=== PATIENT | male | born 1975 | race Two or more races ===

== ENCOUNTER 2018-09-17 21:34 | Emergency (ER) | payer MEDICARE, OTHER ==
[~2018-09-17] VITALS: Ht 180.3 cm; Wt 74.8 kg
--- NOTE | 2018-09-17 21:55 | NUR ---
DINAH. FROM [facility]. C/O "HAVING NECK PAIN" -GLF AOX4. AMBULATORY VSS -N.V
[2018-09-17] MEDS ORDERED: KETOROLAC TROMETHAMINE INJ 60 MG/2 ML VIAL IM ONE ×2 (22:30→22:34)
[2018-09-17] MEDS ORDERED: TRAMADOL HCL 50 MG TABLET ONE (22:43)
[2018-09-17] MEDS ORDERED: TRAMADOL HCL 50 MG TABLET PO ONE (23:00)
[2018-09-17 23:07] VITALS: BP 122/78
--- NOTE | 2018-09-17 23:07 | NUR ---
PT DENYING BEING HOMELESS.REFUSING TO SIGN PAPERWORK.
== END 2018-09-17 23:08 | disposition home or self-care (01) ==
LOC: ER 21:37
DX: M54.2 Cervicalgia (principal); M25.511 Pain in right shoulder; F17.210 Nicotine dependence, cigarettes, uncomplicated; I25.10 Atherosclerotic heart disease of native coronary artery without angina pectoris; F32.9 Major depressive disorder, single episode, unspecified; F41.9 Anxiety disorder, unspecified; I10 Essential (primary) hypertension; J44.9 Chronic obstructive pulmonary disease, unspecified; Z95.5 Presence of coronary angioplasty implant and graft; Z90.89 Acquired absence of other organs; Z98.890 Other specified postprocedural states
CPT/HCPCS: 99283; J1885

== ENCOUNTER 2020-10-05 20:18 | Inpatient (IN) | payer MEDICARE, OTHER ==
[~2020-10-05] VITALS: Ht 182.9 cm; Wt 89.8 kg
--- NOTE | 2020-10-05 20:39 | NUR ---
stave jointer Admitting/Opening Notes Patient was brought to to the unit via gurney accompanied by an 2 it instructor at approximately 2038. Patient was able to ambulate from a gurney to his bed. Patient was oriented to the staff and his room. Patient's alert and oriented x4. Patient's on room air with no respiratory distress noted. Patient's connected to a tele monitor showing a reading of sinus rhythm. Patient has an IV access on his left forearm gauge #22, which is intact, patent, and flushing well. Safety measures in place: Bed locked, side rails upx2, and call light within reach. Will continue to monitor the patient.
[2020-10-05] MEDS ORDERED: IPRATROPIUM BROMIDE 14 GM INHALER (or 12.9 GM) IH PRN (22:30)
[2020-10-05] MEDS ORDERED: MAG HYDROX/AL HYDROX/SIMETH 30 ML UDC PO PRN (22:30)
[2020-10-05] MEDS ORDERED: ACETAMINOPHEN 325 MG TABLET PO PRN (22:30)
[2020-10-05] MEDS ORDERED: HYDROCODONE/APAP 5/325MG TABLET PO PRN (22:30)
[2020-10-05] MEDS ORDERED: Z GUARD REMEDY 2 OZ OINT TP PRN (22:30)
[2020-10-05] MEDS ORDERED: ALBUTEROL FS 2.5 MG/0.5 ML VIAL.NEB NEB PRN (22:30)
[2020-10-05] MEDS ORDERED: MAGNESIUM HYDROXIDE 30 ML UDC PO PRN (22:30)
[2020-10-05] MEDS ORDERED: GABA300C PO (23:12)
[2020-10-05] MEDS ORDERED: VENL150C58 PO (23:12)
[2020-10-05] MEDS ORDERED: TRAZ-257 PO (23:12)
[2020-10-05] MEDS ORDERED: GABA600T12 PO (23:12)
[2020-10-05] MEDS ORDERED: VANCOMYCIN 1.5 GM in IV D5W 500ml IV ONE (23:30)
[2020-10-05] MEDS ORDERED: VANCOMYCIN 1 GM VIAL ONE ×2 (23:32→23:34)
[2020-10-05] MEDS ORDERED: PIPERACILLIN /TAZOBACTAM 3.375 G VIAL IV ONE (23:32)
[2020-10-05] MEDS: IV NS 0.9% 1,000 ML IV PRN (23:47)
[2020-10-06] VITALS (7 sets, daily range): BP systolic 141–161; BP diastolic 85–113
[2020-10-06] MEDS ORDERED: PIPERACILLIN /TAZOBACTAM 3.375 G in IV D5W 50 ML IV SCH
[2020-10-06] MEDS ORDERED: ZOSYN IVPB 3.375 G in IV D5W 50ml IV SCH
[2020-10-06] MEDS ORDERED: CALCIUM CARBONATE 500 MG TAB.CHEW PO PRN (02:00)
[2020-10-06] MEDS ORDERED: METRONIDAZOLE 500MG/ NS 100ML 100 ML IV ONE (02:04)
[2020-10-06] MEDS ORDERED: CEFTRIAXONE 1 G VIAL ONE (02:05)
[2020-10-06] MEDS: CEFTRIAXONE 1 G in IV D5W 50 ML IV SCH (02:29)
[2020-10-06] MEDS ORDERED: ENOXAPARIN SODIUM 40 MG/0.4 ML DISP.SYRIN SQ ONE (02:30)
[2020-10-06] MEDS: TRAMADOL HCL 50 MG TABLET PO PRN ×3 (02:33→20:32)
[2020-10-06] MEDS: METRONIDAZOLE 500MG/ NS 100ML 500 MG in PREMIX 1 EA IV SCH ×3 (02:59→17:06)
[2020-10-06 04:24] LABS: BILIRUBIN,URINE NEGATIVE (NEGATIVE); COLOR,URINE YELLOW (YELLOW); LEUKOCYTE ESTERASE ,URINE NEGATIVE (NEGATIVE); NITRITE, URINE NEGATIVE (NEGATIVE); PROTEIN,URINE NEGATIVE (NEGATIVE); UGLUCOSE NEGATIVE (NEGATIVE); UROBILINOGEN,URINE 0.2 EU/dL (0.2)
[2020-10-06 06:25] LABS: THYROID STIMULATING HORMONE 4.389 uIU/mL (0.358-3.74)
[2020-10-06 06:27] LABS: BASOPHILS # (AUTO) 0.1 K/uL (0.0-0.2); BASOPHILS % (AUTO) 0.6 % (0.0-2.0); HEMATOCRIT 38 % (39-51); HEMOGLOBIN 12.7 g/dL (13.5-17.5); LYMPHOCYTES # (AUTO) 1.6 K/uL (0.8-4.8); LYMPHOCYTES % (AUTO) 15.6 % (20.0-44.0); MEAN CORPUSCULAR HGB CONC 33 g/dl (31.0-36.0); MEAN CORPUSCULAR VOLUME 88 fL (80-96); MONOCYTES # (AUTO) 0.9 K/uL (0.1-1.30); MONOCYTES % (AUTO) 8.7 % (2.0-12.0); NEUTROPHILS # (AUTO) 7.5 K/uL (1.8-8.9); NEUTROPHILS % (AUTO) 73.1 % (43.0-81.0); PLATELET COUNT (AUTO) 313 K/uL (150-450); RED BLOOD CELL COUNT(AUTO) 4.37 MIL/uL (4.5-6.0); WHITE BLOOD COUNT (AUTO) 10.2 K/uL (4.3-11.0)
[2020-10-06 06:29] LABS: CALCIUM, SERUM 8.9 mg/dL (8.5-10.1); MAGNESIUM 2.1 mg/dL (1.8-2.4); PHOSPHORUS 4.2 mg/dL (2.5-4.9)
[2020-10-06] MEDS ORDERED: IPRATROPIUM HALF ST 0.25 MG/1.25 ML VIAL.NEB IH PRN (07:00)
--- NOTE | 2020-10-06 07:20 | NUR ---
SENIOR ADVISOR OPENING NOTE PT AWAKE IN BED, A/O X4, ABLE TO VERBALIZE NEEDS. NOTED IV ACCESS TO L-FA #22 INTACT AND PATENT WITH NS 0.9% INFUSING @75ML/HR AND TOLERATING WELL. ON EXTERNAL SAND TECHNICIAN CURRENTLY READING ST @105 BPM. PT DENIES ANY CARDIAC DISTRESS. SAFETY MEASURES MAINTAINED: BED IN LOWEST LOCKED POSITION, SR UP X2, CALL LIGHT AND BEDSIDE TABLE WITH EASY REACH. WILL CONTINUE TO MONITOR.
[2020-10-06] MEDS ORDERED: VANCOMYCIN 1.25 GM in IV D5W 250 ML IV SCH (08:00)
--- NOTE | 2020-10-06 08:00 | NUR ---
RN NOTE PT C/O MILD PAIN TO BACK 05/25. GIVEN ACETAMINOPHEN ORDERED. MADE COMFORTABE IN BED.
[2020-10-06] MEDS: PANTOPRAZOLE 40 MG TABLET.DR PO SCH (08:34)
--- NOTE | 2020-10-06 09:50 | NUR ---
SEEN AND EXAMINED BY DR. LOPEZ
[2020-10-06] MEDS: NYSTATIN (PYXIS) 500,000 UNIT/5 ML ORAL.SUSP PO SCH ×3 (10:29→17:06)
[2020-10-06] MEDS: GABAPENTIN 300 MG CAPSULE PO SCH (10:29)
[2020-10-06] MEDS: VENLAFAXINE XR 75 MG CAP.SR.24H PO SCH (10:29)
--- NOTE | 2020-10-06 11:49 | NUR ---
RN NOTE COLLECTED STOOL SPECIMEN FOR: OVA & PARASITE EXAM, CULTURE, AND C-DIFF. SPECIMEN BROUGHT TO LAB.
[2020-10-06] MEDS: ONDANSETRON HCL/PF 4 MG/2 ML VIAL IVP PRN ×3 (12:06→21:39)
--- NOTE | 2020-10-06 12:10 | NUR ---
RN NOTES PT C/O NAUSEA, PRN ZOFRAN 4MG/2ML IVP ADMINISTERED AT 1206. WILL CONTINUE TO MONITOR AND REASSESS PT.
[2020-10-06] MEDS ORDERED: LABETALOL 20 MG/4 ML VIAL IV PRN (13:00)
[2020-10-06] MEDS: LABETALOL HCL IV 100MG VIAL IV PRN ×2 (13:14→17:25)
--- NOTE | 2020-10-06 13:24 | NUR ---
RN NOTES PT NOTED WITH BP OF 165/[address] SUAREZ MADE AWARE WITH ORDER TO ADMINISTER LABETALOL 10MG IV Q4HRS PRN FOR SBP >160. ORDERED CARRIED. WILL CONTINUE TO MONITOR PT.
[2020-10-06] MEDS: LORAZEPAM 1 MG TABLET PO PRN (14:45)
--- NOTE | 2020-10-06 18:13 | NUR ---
RN NOTES PT C/O OF NAUSEA, PRN ZOFRAN 4MG IV ADMINISTERED ORDERED AT 1810. WILL CONTINUE TO MONITOR AND REASSESS PT.
--- NOTE | 2020-10-06 18:39 | NUR ---
ENGINEERING FACULTY MEMBER CLOSING NOTES PT AWAKE IN BED AWAKE AND WATCHING TV AT THIS TIME. A/O X4. ABLE TO VERBALIZE NEEDS. ON SUPPLEMENTAL O2 VIA N/C AT 2LPM, TOLERATING WELL, NO SOB NOTED AT THIS TIME. IV ACCESS TO LFA #22 INTACT AND PATENT WITH NS 0.9% INFUSING @75ML/HR AND TOLERATING WELL. ON EXTERNAL TICK SEWER CURRENTLY READING ST @105 BPM. PT DENIES ANY CARDIAC DISTRESS. SAFETY MEASURES MAINTAINED: BED IN LOWEST LOCKED POSITION, SR UP X2, CALL LIGHT AND BEDSIDE TABLE WITH EASY REACH. WILL CONTINUE TO MONITOR.
[2020-10-06] MEDS: IV NS 0.9% 1,000 ML IV PRN (20:32)
--- NOTE | 2020-10-06 20:35 | NUR ---
RN NOTES COMPLAINED OF GENERALIZED PAIN- ULTRAM 50MG PO GIVEN ORDERED
[2020-10-06] MEDS ORDERED: ENOXAPARIN SODIUM 40 MG/0.4 ML DISP.SYRIN SQ SCH (21:00)
--- NOTE | 2020-10-06 21:40 | NUR ---
RN NOTES COMPLAINED OF FEELING NAUSEOUS- ZOFRAN 4 MG IV GIVEN ORDERED
[2020-10-06] MEDS ORDERED: TRAZODONE 50 MG TABLET PO SCH (22:00)
[2020-10-07] VITALS: BP 162/112
[2020-10-07] MEDS: LABETALOL HCL IV 100MG VIAL IV PRN ×2 (00:22→05:10)
--- NOTE | 2020-10-07 00:26 | NUR ---
RN NOTES BLOOD PRESSURE IS 162/112 HR-95, LABETALOL 10MG IV GIVEN ORDERED
[2020-10-07] MEDS: CEFTRIAXONE 1 G in IV D5W 50 ML IV SCH (02:11)
[2020-10-07] MEDS: METRONIDAZOLE 500MG/ NS 100ML 500 MG in PREMIX 1 EA IV SCH ×2 (02:33→10:19)
[2020-10-07 04:00] VITALS: BP 160/103
[2020-10-07] MEDS: ONDANSETRON HCL/PF 4 MG/2 ML VIAL IVP PRN (05:10)
--- NOTE | 2020-10-07 05:16 | NUR ---
RN NOTES PATIENT ICS FEELING NAUSEOUS, ZOFRAN 4 MG IV GIVEN, BLOOD PRESSURE IS 161/103, HR-90- LABETALOL 10MG IV GIVEN ORDERED
--- NOTE | 2020-10-07 06:43 | NUR ---
RN NOTES SLEEPING BUT AROUSAB,E DENIES PAIN, NO SOB, MORNING CARE RENDERED, CALL LIGHT WITHIN REACH, [id number], PT. NEEDS ATTENDED
--- NOTE | 2020-10-07 07:49 | NUR ---
AMMUNITION ASSEMBLY II LABORER OPENING NOTE PATIENT IS IN BED RESTING, PATIENT IS IN OXYGEN 2L ON NC. PATIENT IS ON TELE MONITOR READING SR 80s-90s. SAFETY PRECAUTIONS ARE ON, BED IS LOCKED IN THE LOWEST POSITION WITH SIDE RAILS UP, CALL LIGHT WITHIN REACH. WILL CONTINUE TO MONITOR CLOSELY.
[2020-10-07] MEDS: LORAZEPAM 1 MG TABLET PO PRN (07:58)
[2020-10-07] MEDS: NYSTATIN (PYXIS) 500,000 UNIT/5 ML ORAL.SUSP PO SCH ×2 (08:31→13:32)
[2020-10-07] MEDS: GABAPENTIN 300 MG CAPSULE PO SCH (08:31)
[2020-10-07] MEDS: PANTOPRAZOLE 40 MG TABLET.DR PO SCH (08:31)
[2020-10-07] MEDS: TRAMADOL HCL 50 MG TABLET PO PRN (08:32)
[2020-10-07] MEDS: VENLAFAXINE XR 75 MG CAP.SR.24H PO SCH (08:32)
--- NOTE | 2020-10-07 08:50 | NUR ---
CARD CUTTER HELPER NOTE' PATIENT IS FEELING SEVERE ANXIETY, ATIVAN PRN GIVEN, WILL REASSESS
[2020-10-07] MEDS ORDERED: AMLODIPINE BESYLATE 10 MG TABLET PO SCH (09:00)
[2020-10-07] MEDS ORDERED: CIPR-262 PO (10:14)
[2020-10-07] MEDS ORDERED: ONDA-97 PO (10:14)
[2020-10-07] MEDS ORDERED: METR500T PO (10:14)
[2020-10-07] MEDS ORDERED: AMLO-213 PO (10:18)
[2020-10-07 10:19] VITALS: BP 146/98
--- NOTE | 2020-10-07 15:50 | NUR ---
DELICATESSEN STORE MANAGERSYSTEMS PROGRAMMER NOTE PATIENT IS MEDICALLY STABLE TO BE DISCHARGED. PATIENT IS IN NO ACUTE DISTRESS. PATIENTS NEED WERE ADDRESSED DURING THE STAY. DISCHARGE INSTRUCTIONS PROVIDED. PATIENT VERBALIZED UNDERSTANDING. PATIENT SKIN IS INTACT. PATIENTS IV SITE AND ID BAND REMOVED. BELONGINGS LIST SIGNED AND WENT OVER. PATIENT LEFT VIA TRANSPORTATION SERVICE. MD IS AWARE OF DISCHARGE.
== END 2020-10-07 16:00 | disposition home or self-care (01) | DRG 871 ==
LOC: TELE 20:58
PROVIDERS: ADMIT Registered Nurse; ATTEND Internal Medicine
DX: A41.9 Sepsis, unspecified organism (principal); J18.9 Pneumonia, unspecified organism; B37.0 Candidal stomatitis; J44.0 Chronic obstructive pulmonary disease with (acute) lower respiratory infection; K50.90 Crohn's disease, unspecified, without complications; K86.1 Other chronic pancreatitis; G89.4 Chronic pain syndrome; K21.9 Gastro-esophageal reflux disease without esophagitis; K52.9 Noninfective gastroenteritis and colitis, unspecified; L40.50 Arthropathic psoriasis, unspecified; Z95.5 Presence of coronary angioplasty implant and graft; M54.30 Sciatica, unspecified side; I27.21 Secondary pulmonary arterial hypertension; F17.200 Nicotine dependence, unspecified, uncomplicated; I10 Essential (primary) hypertension; D89.89 Other specified disorders involving the immune mechanism, not elsewhere classified; M06.9 Rheumatoid arthritis, unspecified; D64.9 Anemia, unspecified
CPT/HCPCS: 36415; 71045-TC; 80048-TC; 80061-TC; 83605-TC; 83735-TC; 84100-TC; 84443-TC; 85025-TC; 87040-TC; 87045-TC; 87081-TC; 87086-TC; 87177; 87209; 93307-TC; A4216; G0378; J0696; J1650; J2405; J2543; J3370; J3490; J7030; J7060